=== PATIENT | male | born 1955 | race Caucasian/White ===

== ENCOUNTER → 2019-04-15 | Outpatient (CLI) | payer OTHER ==
--- NOTE | 2019-04-15 10:53 | REP ---
CT paranasal sinuses: 04/15/2019. Indication: Sinusitis. Polyp. Comparison: None. Technique: Unenhanced axial CT images of the paranasal sinuses were performed with coronal reconstructions provided. Findings: Postoperative sequelae are present on the right. No air-fluid levels or frothy secretions are present to suggest acute inflammation. The underpneumatized frontal sinuses are filled with soft tissue as are essentially the ethmoid air cells and sphenoid sinuses. There is significant periosteal mucosal thickening of the left greater than right maxillary sinuses. 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 The sinonasal passageways are compromised by soft tissue throughout with the exception of the surgical antrectomy on the right. There is rightward deviation of the nasal septum. No significant ocular, intraorbital or intracranial abnormalities are detected. The mastoid air cells are clear. Impression: Chronic pansinusitis and postoperative sequelae as described. Electronically Signed by Arpan Sanchez DO 04/15/2019 10:45 A
== END ==
LOC: M RAD 09:00
PROVIDERS: ATTEND Otolaryngology
DX: J33.9 Nasal polyp, unspecified (principal)

== ENCOUNTER → 2019-06-26 | Outpatient (CLI) | payer OTHER ==
[~2019-06-26] MED LIST: PROHANCE 279.3MG/ML 15ML VIAL (A9576) As Ordered ONE
--- NOTE | 2019-06-26 10:19 | REP ---
MRI study of the brain and posterior fossa/IACs: Without and with IV contrast. History: Comparison maxillofacial CT study is from April 15, 2019. Sensorineural hearing loss left ear. No comparison MRI study. Technique: Axial, coronal, and sagittal imaging planes utilized. T1 and T2-weighted sequences include spin-echo, turbo spin echo, FLAIR, diffusion weighted scans, thin section 3-D turbo spin X show posterior fossa images and postcontrast T1-weighted images in all three planes. The contrast enhancement dose is 15 ml of ProHance. MRI findings: The bony calvarium is intact in appearance. Craniocervical junction and upper cervical cord are normal in appearance. There is again noted the evidence of chronic poly sinusitis with involvement of all the paranasal sinuses except for the mastoids which appear normal and signal intensity. No intraorbital abnormality is seen. Diffusion weighted scan show no evidence of as the restricted diffusion to suggest acute ischemia. There is no evidence of infarct or intracranial hemorrhage. Thin section images through the posterior fossa show normal seventh and eighth nerves in normal symmetric internal auditory canals bilaterally. No CP angle cistern mass is observed. No other evidence of intracranial mass lesion is seen. Postcontrast images show enhancement in normal vascular structures. No intracanalicular or extra canalicular enhancement is seen in the region of either internal auditory canal. The basilar artery is rather tortuous but intact. No other vascular abnormality is observed. There is no evidence of vascular loop in either internal auditory canal. No abnormal intracranial enhancement is seen. Impression: Unremarkable MRI study brain and IACs except for presence of chronic pop Nikki sinusitis changes. This involves all of the paranasal sinuses except the mastoids. Electronically Signed by Celso Riggs MD 06/26/2019 06:34 P
== END ==
LOC: M RAD 08:49
PROVIDERS: ATTEND Physician Assistant Medical
DX: H90.A22 Sensorineural hearing loss, unilateral, left ear, with restricted hearing on the contralateral side (principal)

== ENCOUNTER → 2024-04-16 | Outpatient (CLI) | payer OTHER | LOC: M WUC 12:47 | PROVIDERS: ATTEND Physician Assistant | DX: R05.9 Cough, unspecified (principal) ==

== ENCOUNTER → 2024-05-20 | Outpatient (CLI) | payer OTHER | LOC: M WUC 10:37 | PROVIDERS: ATTEND Physician Assistant | DX: R05.9 Cough, unspecified (principal) ==

== ENCOUNTER → 2024-12-25 | Outpatient (CLI) | payer MEDICARE ==
[2024-12-25 12:27] LABS: BASO # 0.1 10^3/uL (0.0-0.2); BASO % 0.7 % (0.0-1.0); EOS # 0.3 10^3/uL (0.0-0.5); EOS % 3.7 % (0.0-3.0); LYMPH # 1.5 10^3/uL (1.5-5.0); LYMPH % 17.4 % (24.0-44.0); MONO # 0.6 10^3/uL (0.0-0.8); MONO % 7.7 % (2.0-8.0); NEUTROPHILS # 5.8 10^3/uL (1.5-8.5); NEUTROPHILS % 70.1 % (36.0-66.0); PLATELET COUNT, AUTOMATED 267 10^3/uL (150-450)
== END ==
LOC: M WUC 10:28
PROVIDERS: ATTEND Allergy & Immunology
DX: J33.9 Nasal polyp, unspecified (principal); J30.1 Allergic rhinitis due to pollen; R53.81 Other malaise